=== PATIENT | female | born 1945 | race Caucasian/White ===

== ENCOUNTER 2020-06-23 12:31 | Inpatient (IN) | payer MEDICARE, OTHER ==
[~2020-06-23 12:31] MED LIST: ADVAIR 250-501 EACH INH; ASPIRIN CHEWABL81 MG PO; COZAAR 25MG TAB25 MG PO; COZAAR100 MG PO; HYDROCHLOROTH12.5 MG PO; LEFLUNOMIDE20 MG PO; METFORMIN HCL500 M3 PO; MONTELUKAST SOD10 MG PO; MOTRIN600 MG PO; OS-CAL500 MG PO; PERCOCET 5-3251 EACH PO; POTASSIUM99 M1 PO; PREDNISONE5 MG PO; PROTONIX 40MG T40 MG PO; SPIRIVA 18MCG18 MCG INH; TRAMADOL HCL50 MG PO; VITAMIN E400 UNIT PO
[2020-06-23 13:12] LABS: BASOPHIL 0.3 % (0-2); EOSINOPHIL 0.7 % (0-7); HCT 42.3 % (37.0-47.0); HGB 13.8 g/dl (12.5-16.0); LYMPHOCYTE 22.6 % (15-48); MCH 29.1 pg (25.0-31.0); MCHC 32.6 g/dL (32.0-36.0); MCV 89.1 fL (78.0-100.0); MONOCYTE 6.6 % (0-12); MPV 11.9 fL (6.0-9.5); NEUTROPHIL 68.9 % (41-80); NRBC 0; PLT 221 K/uL (150-400); RBC 4.75 M/uL (4.20-5.40); RDW 15.8 % (11.5-14.0)
[2020-06-23 13:38] LABS: BILIRUBIN NEGATIVE (NEGATIVE); BLOOD NEGATIVE Ery/uL (NEGATIVE); CLARITY CLEAR (CLEAR); COLOR YELLOW (YELLOW); GLUCOSE (U) NORMAL (NORMAL); LEUKOCYTES 2+ Leu/uL (NEGATIVE); NITRITE NEGATIVE (NEGATIVE); PROTEIN NEGATIVE (NEGATIVE)
[2020-06-23 13:42] LABS: ALBUMIN 3.6 g/dL (3.4-5.0); BILIRUBIN - TOTAL 0.5 mg/dL (0.2-1.0); BUN/CREAT RATIO (CALC) 20.3 RATIO; CREATININE 0.59 mg/dL (0.51-0.95); POTASSIUM 3.3 mmol/L (3.5-5.1); TOTAL PROTEIN 7.6 g/dL (6.4-8.2)
[2020-06-23 13:44] LABS: BACTERIA 1+; URINARY RBC RARE
[2020-06-23] MEDS ORDERED: NORVASC5 MG PO (17:04)
[2020-06-23] MEDS ORDERED: PROTONIX 40MG T40 MG PO (17:04)
[2020-06-23] MEDS ORDERED: XELJANZ XR11 MG PO (17:05)
[2020-06-24 06:24] LABS: BASOPHIL 0.3 % (0-2); EOSINOPHIL 0 % (0-7); HCT 35.5 % (37.0-47.0); HGB 11.6 g/dl (12.5-16.0); MCH 28.8 pg (25.0-31.0); MCHC 32.7 g/dL (32.0-36.0); MCV 88.1 fL (78.0-100.0); MONOCYTE 2.5 % (0-12); MPV 12.2 fL (6.0-9.5); NEUTROPHIL 78.9 % (41-80); NRBC 0; PLT 206 K/uL (150-400); RBC 4.03 M/uL (4.20-5.40); RDW 15.9 % (11.5-14.0); WBC 3.5 K/uL (4.0-10.5)
[2020-06-24 07:08] LABS: BILIRUBIN - TOTAL 0.4 mg/dL (0.2-1.0); BUN/CREAT RATIO (CALC) 30.8 RATIO; C-REACTIVE PROTEIN 7.6 mg/dL (<=0.90); CREATININE 0.52 mg/dL (0.51-0.95); GLOBULIN (CALCULATION) 3.4 g/dL; POTASSIUM 3.5 mmol/L (3.5-5.1); TOTAL PROTEIN 6.4 g/dL (6.4-8.2)
[2020-06-24 07:12] LABS: LYMPHOCYTE 17.5 % (15-48)
[2020-06-24] MEDS ORDERED: DECADRON6 MG PO (13:09)
== END 2020-06-24 15:07 | disposition home or self-care (01) | DRG 177 ==
LOC: FER 12:31 → FMS 14:08
PROVIDERS: Nurse Practitioner Family; ADMIT Internal Medicine
PROC: XW033E5 Introduction of Remdesivir Anti-infective into Peripheral Vein, Percutaneous Approach, New Technology Group 5 (ICD-10-PCS; principal; 2020-06-23)
PROC: 8E0ZXY6 Isolation (ICD-10-PCS; 2020-06-23)
DX: U07.1 COVID-19 (principal); J12.82 Pneumonia due to coronavirus disease 2019; E11.9 Type 2 diabetes mellitus without complications; I10 Essential (primary) hypertension; M06.9 Rheumatoid arthritis, unspecified; J45.909 Unspecified asthma, uncomplicated; Z96.652 Presence of left artificial knee joint; K21.9 Gastro-esophageal reflux disease without esophagitis; Z98.51 Tubal ligation status; Z79.84 Long term (current) use of oral hypoglycemic drugs; Z79.899 Other long term (current) drug therapy
CPT/HCPCS: 36415; 36600; 71250; 80053; 81001; 82728; 82803; 84484; 85025; 86140; 87088; 93005; 94640; C9399; J1650; J7050; J8540; U0002

== ENCOUNTER 2021-06-01 13:22 | Emergency (ER) | payer MEDICARE, OTHER ==
[~2021-06-01 13:22] MED LIST changes: +ADVAIR 250/5028 PUFF INH; +AMLODIPINE BESYL5 MG PO; +CALCIUM +D & M1 EACH PO; +CHILDREN'S ASPI81 MG PO; +DECADRON6 MG PO; +FEOSOL325 MG PO; +LOSARTAN-HCTZ1 EACH PO; +NAPROSYN250 MG PO; +NORVASC5 MG PO; +SINGULAIR10 MG PO; +VITAMIN B-121000 MC1 PO; +VITAMIN D310 MC4 PO; +XELJANZ XR11 MG PO
[2021-06-01 14:25] LABS: BASOPHIL 0.4 % (0-2); EOSINOPHIL 0 % (0-7); HCT 40.5 % (37.0-47.0); HGB 13.2 g/dl (12.5-16.0); LYMPHOCYTE 8.1 % (15-48); MCH 29.8 pg (25.0-31.0); MCHC 32.6 g/dL (32.0-36.0); MCV 91.4 fL (78.0-100.0); MONOCYTE 5.5 % (0-12); MPV 11.7 fL (6.0-9.5); NEUTROPHIL 85.5 % (41-80); NRBC 0; PLT 276 K/uL (150-400); RBC 4.43 M/uL (4.20-5.40); RDW 15.4 % (11.5-14.0)
[2021-06-01 14:52] LABS: BUN/CREAT RATIO (CALC) 27.8 RATIO; CREATININE 0.54 mg/dL (0.51-0.95); POTASSIUM 3.5 mmol/L (3.5-5.1)
== END 2021-06-01 17:52 | disposition home or self-care (01) ==
LOC: FER 13:22
PROVIDERS: Nurse Practitioner Family
DX: K59.00 Constipation, unspecified (principal); K64.9 Unspecified hemorrhoids; N83.202 Unspecified ovarian cyst, left side; E11.9 Type 2 diabetes mellitus without complications; I10 Essential (primary) hypertension; J45.909 Unspecified asthma, uncomplicated; Z87.891 Personal history of nicotine dependence
CPT/HCPCS: 36415; 80048; 85025; J7030

== ENCOUNTER 2021-06-08 04:25 | Emergency (ER) | payer MEDICARE, OTHER ==
[2021-06-08 04:56] LABS: BASOPHIL 0.2 % (0-2); EOSINOPHIL 0 % (0-7); HCT 41.4 % (37.0-47.0); HGB 13.4 g/dl (12.5-16.0); LYMPHOCYTE 5.6 % (15-48); MCH 29.1 pg (25.0-31.0); MCHC 32.4 g/dL (32.0-36.0); MONOCYTE 3.8 % (0-12); MPV 11.7 fL (6.0-9.5); NEUTROPHIL 89.9 % (41-80); NRBC 0; PLT 241 K/uL (150-400); RDW 15.9 % (11.5-14.0); WBC 11.8 K/uL (4.0-10.5)
[2021-06-08 05:10] LABS: ALBUMIN 4.2 g/dL (3.4-5.0); BILIRUBIN - TOTAL 0.5 mg/dL (0.2-1.0); BUN/CREAT RATIO (CALC) 27.3 RATIO; CREATININE 0.55 mg/dL (0.51-0.95); GLOBULIN (CALCULATION) 3.4 g/dL; POTASSIUM 3.2 mmol/L (3.5-5.1); TOTAL PROTEIN 7.6 g/dL (6.4-8.2)
[2021-06-08] MEDS ORDERED: ONDANSETRON ODT4 MG PO (08:38)
== END 2021-06-08 08:45 | disposition home or self-care (01) ==
LOC: FER 04:25
PROVIDERS: Emergency Medicine
DX: K21.9 Gastro-esophageal reflux disease without esophagitis (principal); R07.89 Other chest pain; E07.9 Disorder of thyroid, unspecified; I10 Essential (primary) hypertension; I25.10 Atherosclerotic heart disease of native coronary artery without angina pectoris; E11.9 Type 2 diabetes mellitus without complications; J45.909 Unspecified asthma, uncomplicated
CPT/HCPCS: 36415; 71045; 71275; 80053; 83880; 84484; 85025; 85379; 93005; J2405; Q9967

== ENCOUNTER → 2021-09-14 | Day surgery (SDC) | payer MEDICARE, OTHER ==
[~2021-09-14] VITALS: Ht 159 cm; Wt 93.2 kg
[~2021-09-14] MED LIST changes: +ACETAMINOPHEN500 M1 PO; +ONDANSETRON ODT4 MG PO
== END | disposition home or self-care (01) ==
LOC: FAS 10:08
DX: Z12.11 Encounter for screening for malignant neoplasm of colon (principal); K64.8 Other hemorrhoids; K64.4 Residual hemorrhoidal skin tags; K57.30 Diverticulosis of large intestine without perforation or abscess without bleeding; I10 Essential (primary) hypertension; J45.909 Unspecified asthma, uncomplicated; K21.9 Gastro-esophageal reflux disease without esophagitis; M19.90 Unspecified osteoarthritis, unspecified site; Z79.82 Long term (current) use of aspirin; Z79.899 Other long term (current) drug therapy; Z72.89 Other problems related to lifestyle; Z87.891 Personal history of nicotine dependence
CPT/HCPCS: J2704; J7120